=== PATIENT | male | born 1970 | race African-American/Black ===

== ENCOUNTER 2024-12-10 08:58 | Outpatient (AMB) | payer BC, SELFPAY ==
[2024-12-10 09:00] VITALS: BP 110/80; PULSE 68; O2SAT 98; BMI 26.8
--- NOTE | 2024-12-10 09:00 | A.OFFVIS_ITS ---
Vital Signs 3 12/10/24 09:00 Height 6 ft 1 in Weight 203 lb 0.732 oz BMI 26.8 BP 110/80 Blood Pressure Location Lt brachial Position Sitting Pulse 68 Pulse Source Pulse Oximeter Pulse Oximetry (%) 98 Oxygen Delivery Method Room Air Intake Visit Reasons: Hyperlipidemia Intake Note: Patient present today for Hyperlipidemia. 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 Labs from May 2024 showed total cholesterol of 249, triglyceride of 125, HDL 50, LDL cholesterol 174 mg/dL. 2003: was originally told high lipids Cut out red meat, only egg whites , cutting out cheese Mostly plant based diet but past year a little bit more fried foods and eating out Was on crestor 5 mg daily in 2003 , improved numbers but ended up with rhabdomyolysis so discontinued No CA, no CVA 2019: DVT unprovoked , on elequis Family No family history of CVA , CA Mother: type 2 DM Has prediabetes , a1c 05/2024 6.3 % Never smoker Alcohol : 1 drink per month Drug use: none Work : works an technical solutions engineer, mostly on the desk Exercise : 30 mins daily of brisk walking , sometimes 45 to an hour recenlty Does light weights BMI 26.8 kg per m2 Weight 203 lb, endorses that he has lost 15 lb in the past 6 months ASCVD score 5.2%, borderline Physical exam General: sitting comfortably in no acute distress HEENT: normocephalic/atraumatic Neck: supple, symmetrical, no thyromegaly Cardiac: normal heart sounds Pulm: normal breath sounds B/L, no added breath sounds Abd: not distended Extremities: no edema PFSH Medical History (Updated 12/10/24 @ 09:52 by Dorie Tran MD) Dyslipidemia Surgical History (Updated 12/10/24 @ 09:06 by DANIEL Swartz) H/O hand surgery Family History (Updated 12/10/24 @ 09:07 by DANIEL Swartz) Mother Diabetes Father Hypertension Social History (Updated 12/10/24 @ 09:08 by QUINCY Swartz Alcohol intake: current Alcohol intake frequency: holidays/special occasions only Patient Tobacco Use Status: Never used Tobacco Physical Exam Vital Signs: Last Vital Signs Pulse 68 12/10/24 09:00 BP 110/80 12/10/24 09:00 Pulse Ox 98 12/10/24 09:00 Oxygen Delivery Method Room Air 12/10/24 09:00 BMI result Body Mass Index 26.8 Assessment & Plan Assessment & Plan (1) Dyslipidemia: Code(s): E78.5 - Hyperlipidemia, unspecified Category: Medical Plan: 54-year-old male coming in today for initial evaluation of hyperlipidemia. He has mixed hyperlipidemia with a elevated total cholesterol and LDL levels. Also has a history of prediabetes. Previously had an episode of rhabdomyolysis with rosuvastatin 5 mg daily back in 2003. He has been trying to lower his lipid levels with the increased exercise and consumption of healthier fats, however still sometimes for the past few months had had some dietary indiscretion. We spent a lot of time discussing importance of lifestyle modification including avoiding trans in saturated fats. Discussed importance of weight loss of 7-10% to prevent development of diabetes from prediabetes to add to cardiovascular comorbidity. His ASCVD risk score is 5.2% which is borderline. He does not have risk enhancing factors such as premature ASCVD in family, metabolic syndrome, CKD, chronic inflammatory conditions, however definitely with his borderline risk I would advise lowering LDL by a 30-50%. Given history of rhabdomyolysis, he is scared to try a statin, understandably however that was in the setting of dehydration, can consider reach challenging with the lower dose of a different statin such as atorvastatin. I discussed with the patient that we can start him on Zetia but usually that results in 13% LDL reduction by itself, and 26% in addition to his statin. For now he would like to combine Zetia with lifestyle modification. I did tell him that if LDL does not come down within 3 months, he would be a good candidate for PCSK9 inhibitors, however cardiology usually manages this switch primary care physician can refer him to Cardiology. Another option is starting him on bempedoic acid , he would like to wait and see results with Zetia combined with lifestyle modification. He is opting out of seeing a filler wiper, he does have good knowledge of what foods to avoid. I encouraged him to continue with his good amount of exercise and improve the dietary choices. Plan: -start Zetia 10 mg daily -can consider adding bempedoic acid 180 mg daily to his regimen in 3-4 months if lipid panel does not improve -repeat lipid panel in 3 months -if patient would like to start PCSK9 inhibitors, please refer him to cardiology -lifestyle modification is discussed -patient can follow up with us on an as-needed basis, he feels comfortable with following with his primary care physician with the above recommendation Discussed with him side effects of Zetia including muscle aches, rare side effects such as rhabdomyolysis/muscle toxicity, as well as liver toxicity. Liver enzymes were monitored when Zetia as used in addition to statin, since we are just using Zetia, lower risk, no need to monitor LFTs regularly unless he develops any symptoms. Advised him to reach out if he has any muscle aches, nausea, vomiting, changes to his urine color. Note: Patient has a history of thyroid nodules, I do not have any of these records, who used to follow with endocrinology at [facility]. I offered him would he like to establish care with us for his thyroid nodules, however at this time he does not want to pursue it and opts out of that care. I did tell him that since he had a biopsy of 1 of these nodules in the past, these usually require follow up for at least 5 years with an ultrasound every 1-2 years. He understands the risk, however at this time would like to not establish care with us for this. I let him know that if he changes his mind he can call our office to make an appointment or see his prior technical recruiter at [facility]. Patient verbalized understanding. Plan I spent 45 minutes in reviewing the record, seeing the patient and documenting in the medical record. Orders: Orders 2 Lipid Panel Today E78.5 - Hyperlipidemia, unspecified Medications: New 2 ezetimibe (Zetia) 10 mg PO DAILY 90 tabs 3RF Patient Instructions: start zetia 10 mg daily Repeat lipid panel in 3months Continue exercise at least 150 mins a week of cardio plus 2-3 days of 30 mins of strength training Avoid trans and saturdated fats Coding Level of Care Code New Pt Level 4 (75683) Diagnoses Dyslipidemia E78.5 Time Spent (min) 45
--- OUTSIDE RECORDS SUMMARY | 2024-12-10 09:17 | XMS_ITS | Clinical Summary ---
Author Organization [facility] Address [address] [place] [address] Care Team Providers Care Race Engine Builder Name Role Phone Jenny Lees MD Primary Care Provider [phone] Allergies No known active allergies Medications Medication Sig Dispensed Refills Start Date End Date Status apixaban (ELIQUIS) 5 MG TABS tablet Take 5 mg by mouth daily. 0 Active Active Problems No known active problems Family History Medical History Relation Name Comments Benign prostatic hyperplasia Father Hypertension Father Diabetes Mother Relation Name Status Comments Brother 1 Alive Brother 2 Alive Brother 3 Alive Brother 4 Alive Brother 5 Alive Brother 6 Alive Brother 7 Alive Daughter 1 Alive Daughter 2 Alive Father Alive Mother Alive Sister 1 Alive Sister 2 Alive Sister 3 Alive Social History Tobacco Use Types Packs/Day Years Used Date Smoking Tobacco: Never Smokeless Tobacco: Never Alcohol Use Standard Drinks/Week Comments Yes 0 (1 standard drink = 0.6 oz pur e alcohol) Very rare x1 a yr Sex and Gender Information Value Date Recorded Sex Assigned at Not on file Gender Identity Not on file Sexual Orientation Not on file Last Filed Vital Signs Vital Sign Reading Time Taken Comments Blood Pressure 127/82 05/12/2021 11:27 AM EDT Pulse 78 05/12/2021 11:27 AM EDT Temperature 36.2 ??C (97.1 ??F) 05/12/2021 11:27 AM E DT Respiratory Rate - - Oxygen Saturation 100% 05/12/2021 11:27 AM EDT Inhaled Oxygen Concentration - - Weight 93.9 kg (207 lb) 05/12/2021 11:27 AM EDT Height 188 cm (6' 2 ) 05/12/2021 11:27 AM EDT Body Mass Index 26.58 05/12/2021 11:27 AM EDT Plan of Treatment Health Maintenance Due Date Last Done Comments Hepatitis B Vaccines (1 of 3 - 3-dose series) 1970 Hepatitis C Screening 1970 COVID-19 Vaccine (#1) 1970 Depression Screening 1982 Preventative Health Evaluation 1988 DTap / Tdap / Td (1 - Tdap) 1989 Colon Cancer Screening (Colonoscopy) 2015 Shingrix-Zoster Vaccine (1 of 2) 2020 Influenza Vaccine (#1) 2024 Pneumococcal Vaccine Aged Out No long er eligible based on patient's age to complete this topic RSV Ped < 20 months Aged Out No longe r eligible based on patient's age to complete this topic Care Teams Race Engine Builder Relationship Specialty Start Date End Date Jenny Lees MD [address] [place] [address] [address] [place] [address] PCP - General Internal Medicine 10/09/19
--- OUTSIDE RECORDS SUMMARY | 2024-12-10 09:17 | XMS_ITS | Clinical Summary ---
Author Organization [facility] Address [address] [place] [address] Care Team Providers Care Nutritional Assistant Name Role Phone Jenny Lees MD Primary Care Provider [phone] Medical History Medical History Date Comments Pulmonary embolism (CMS/HCC) 09/21/2019 DX: Pulmonary embolism (HCC) Hypercholesteremia DX:Hyperchole steremia;COMMENT:Not on medication Family History Medical History Relation Name Comments [...] drink = 0.6 oz pur e alcohol) Sex and Gender Information Value Date Recorded Sex Assigned at Not on file Gender Identity Not on file Sexual Orientation Not on file Obstetrics History Plan of Treatment Health Maintenance Due Date Last Done Comments DTaP,Tdap,and Td Vaccines (1 - Tdap) 1989 Hepatitis B Vaccines (1 of 3 - 19+ 3-dose series) 1989 Zoster Vaccines (1 of 2) 2020 Cholesterol Screening (Lipid Panel) 10/04/2022 Colorectal Cancer Screening: Colonoscopy 10/04/2022 Depression Screening 10/04/2022 HIV Screening 10/04/2022 Hepatitis C Screening 10/04/2022 Social Influencers of Health Screening 10/04/2022 COVID-19 Vaccine (1 - 2023-2 5 season) 2024 Influenza Vaccine (#1) 2024 HIB Vaccines Aged Out No longer eligi ble based on patient's age to complete this topic HPV Vaccines Aged Out No longer eligi ble based on patient's age to complete this topic Hepatitis A Vaccines Aged Out No long er eligible based on patient's age to complete this topic IPV Vaccines Aged Out No longer eligi ble based on patient's age to complete this topic MMR Vaccines Aged Out No longer eligi ble based on patient's age to complete this topic Meningococcal ACWY Vaccine Aged Out N o longer eligible based on patient's age to complete this topic Pneumococcal Vaccine: Pediat rics (0 to 5 Years) and At-Risk Patients (6 to 64 Years) Aged Out No longer eligible b ased on patient's age to complete this topic RSV Immunization Patients Un melodie 20 months Aged Out No longer eligible b ased on patient's age to complete this topic Varicella Vaccines Aged Out No longer eligible based on patient's age to complete this topic Care Teams Nutritional Assistant Relationship Specialty Start Date End Date Jenny Lees MD [address] [place] [id number] PCP - General Internal Medicine 10/09/19
--- OUTSIDE RECORDS SUMMARY | 2024-12-10 09:17 | XMS_ITS | Data Portability ---
Author Organization EARLINE Cheema [facility], [address] Address [address] [place] [address] Care Team Providers Care Vacuum Truck Driver Name Role Phone PHYSICIAN [facility] Primary Care Provider [phone] Assessment No assessment recorded. Plan of Treatment Reminders Order Date Submit Date Provider Last Modified By Organization Details Last Modified Time Details Appointments None recorded. Lab CBC w/ auto diff 2023 024 [facility], [address] [place] [address], [id number], 4 06:07:34 thyroid panel, serum 2023 024 [facility], [address] [place] [address], [id number], 4 08:07:52 borrelia burgdorferi IgG + IgM + total panel, IA, serum 2023 024 [facility], [address] [place] [address], [id number], 4 14:06:22 CMP, serum or plasma 2023 024 [facility], [address] [place] [address], [id number], 4 08:07:52 Referral None recorded. Procedures None recorded. Surgeries None recorded. Imaging None recorded. Medication Orders None recorded. Patient TargetsNo targets recorded. Patient Instructions Encounter Date Encounter Id Patient Instructions Last Modified By Organization Details Last Modified Time 05/24/2024 [id number] fatigue: care instructions Not available 05/24/2024 19:24:16 specimen collection & handling* RYLAN Not available 05/24/2024 19:25:57 06/28/2024 [id number] diarrhea: care instructions Not available 06/28/2024 12:22:34 Take 1 OTC Immodium after each loose bowel movement. No more than 4 tablets a day. [email or web address] Not available 06/28/2024 12:14:23 Reason for Referral None Reported. Results Created Date Observation Date Name Description Value Unit Range Abnormal Flag Note LastModifiedBy Organization Detail LastModifiedTime 05/24/20 24 05/25/2024 CBC WITH DIFFE RENTI AL/PL ATELE T WBC 3.7 x10e3 /uL 3.4-10 .8 normal Not Available [facility] ([facility]) [address] [place], [address], 05/25/2024 06:07:34 05/24/20 24 05/25/2024 CBC WITH DIFFE RENTI AL/PL ATELE T RBC 4.63 x10e6 /uL 4.14-5 .80 normal Not Available [facility] ([facility]) [address] [place], [address], 05/25/2024 06:07:34 05/24/20 24 05/25/2024 CBC WITH DIFFE RENTI AL/PL ATELE T hemoglobin 13.8 g/dL 13.0-1 7.7 normal Not Available [facility] ([facility]) [address] [place], [address], 05/25/2024 06:07:34 05/24/20 24 05/25/2024 CBC WITH DIFFE RENTI AL/PL ATELE T hematocrit 42.6 % 37.5-5 1.0 normal Not Available [facility] ([facility]) [address] [place], [address], 05/25/2024 06:07:34 05/24/20 24 05/25/2024 CBC WITH DIFFE RENTI AL/PL ATELE T MCV 92 fL 79-97 normal Not Available [facility] ([facility]) [address] [facility], [place], [address], 05/25/2024 06:07:34 05/24/20 24 05/25/2024 CBC WITH DIFFE RENTI AL/PL ATELE T MCH 29.8 pg 26.6-3 3.0 normal Not Available [facility] ([facility]) [address] [facility], [place], [address], 05/25/2024 06:07:34 05/24/20 24 05/25/2024 CBC WITH DIFFE RENTI AL/PL ATELE T MCHC 32.4 g/dL 31.5-3 5.7 normal Not Available [facility] ([facility]) [address] [facility], [place], [address], 05/25/2024 06:07:34 05/24/20 24 05/25/2024 CBC WITH DIFFE RENTI AL/PL ATELE T RDW 13.1 % 11.6-1 5.4 Not Available [facility] ([facility]) [address] [place], [address], 05/25/2024 06:07:34 05/24/20 24 05/25/2024 CBC WITH DIFFE RENTI AL/PL ATELE T platelets 218 x10e3 /uL 150-45 0 normal Not Available [facility] ([facility]) [address] [facility], [place], [address], 05/25/2024 06:07:34 05/24/20 24 05/25/2024 CBC WITH DIFFE RENTI AL/PL ATELE T neutrophils 54 % not estab. normal Not Available [facility] ([facility]) [address] [facility], [place], [address], 05/25/2024 06:07:34 05/24/20 24 05/25/2024 CBC WITH DIFFE RENTI AL/PL ATELE T lymphs 34 % not estab. normal Not Available [facility] ([facility]) [address] [facility], [place], [address], 05/25/2024 06:07:34 05/24/20 24 05/25/2024 CBC WITH DIFFE RENTI AL/PL ATELE T monocytes 9 % not estab. normal Not Available [facility] ([facility]) [address] [facility], [place], [address], 05/25/2024 06:07:34 05/24/20 24 05/25/2024 CBC WITH DIFFE RENTI AL/PL ATELE T eos 2 % not estab. normal Not Available [facility] ([facility]) [address] [facility], [place], [address], 05/25/2024 06:07:34 05/24/20 24 05/25/2024 CBC WITH DIFFE RENTI AL/PL ATELE T basos 0 % not estab. normal Not Available [facility] ([facility]) [address] [facility], [place], [address], 05/25/2024 06:07:34 05/24/20 24 05/25/2024 CBC WITH DIFFE RENTI AL/PL ATELE T immature cells BOTTOM STOP ATTACHER Not Available [facility] ([facility]) [address] [place], [address], 05/25/2024 06:07:34 05/24/20 24 05/25/2024 CBC WITH DIFFE RENTI AL/PL ATELE T neutrophils (absolute) 2.0 x10e3 /uL 1.4-7. 0 normal Not Available [facility] ([facility]) [address] [place], [address], 05/25/2024 06:07:34 05/24/20 24 05/25/2024 CBC WITH DIFFE RENTI AL/PL ATELE T lymphs (absolute) 1.3 x10e3 /uL 0.7-3. 1 normal Not Available [facility] ([facility]) [address] [facility], [place], [address], 05/25/2024 06:07:34 05/24/20 24 05/25/2024 CBC WITH DIFFE RENTI AL/PL ATELE T monocytes(ab solute) 0.3 x10e3 /uL 0.1-0. 9 normal Not Available [facility] ([facility]) [address] [facility], [place], [address], 05/25/2024 06:07:34 05/24/20 24 05/25/2024 CBC WITH DIFFE RENTI AL/PL ATELE T eos (absolute) 0.1 x10e3 /uL 0.0-0. 4 normal Not Available [facility] ([facility]) [address] [facility], [place], [address], 05/25/2024 06:07:34 05/24/20 24 05/25/2024 CBC WITH DIFFE RENTI AL/PL ATELE T baso (absolute) 0.0 x10e3 /uL 0.0-0. 2 normal Not Available [facility] ([facility]) [address] [facility], [place], [address], 05/25/2024 06:07:34 05/24/20 24 05/25/2024 CBC WITH DIFFE RENTI AL/PL ATELE T immature granulocytes 1 % not estab. Not Available [facility] ([facility]) [address] [facility], [place], [address], 05/25/2024 06:07:34 05/24/20 24 05/25/2024 CBC WITH DIFFE RENTI AL/PL ATELE T immature grans (abs) 0.0 x10e3 /uL 0.0-0. 1 Not Available [facility] ([facility]) [address] [facility], [place], [address], 05/25/2024 06:07:34 05/24/20 24 05/25/2024 CBC WITH DIFFE RENTI AL/PL ATELE T NRBC BOTTOM STOP ATTACHER Not Available [facility] ([facility]) [address] [facility], [place], [address], 05/25/2024 06:07:34 05/24/20 24 05/25/2024 CBC WITH DIFFE RENTI AL/PL ATELE T hematology comments: BOTTOM STOP ATTACHER Not Available [facility] ([facility]) [address] [facility], [place], [address], 05/25/2024 06:07:34 05/24/20 24 05/25/2024 COMP. METAB OLIC PANEL (14) glucose 110 mg/dL 70-99 above high normal Not Available [facility] ([facility]) [address] [facility], [place], [address], 05/25/2024 08:07:51 05/24/20 24 05/25/2024 COMP. METAB OLIC PANEL (14) BUN 10 mg/dL 6-24 normal Not Available [facility] ([facility]) [address] [facility], [place], [address], 05/25/2024 08:07:51 05/24/20 24 05/25/2024 COMP. METAB OLIC PANEL (14) creatinine 1.10 mg/dL 0.76-1 .27 normal Not Available [facility] ([facility]) [address] [facility], [place], [address], 05/25/2024 08:07:51 05/24/20 24 05/25/2024 COMP. METAB OLIC PANEL (14) eGFR 80 mL/mi n/1.7 3 >59 normal Not Available [facility] ([facility]) [address] [facility] [place], [address], 05/25/2024 08:07:51 05/24/20 24 05/25/2024 COMP. METAB OLIC PANEL (14) BUN/creatini ne ratio 9 9-20 normal Not Available [facility] ([facility]) [address] [place], [address], 05/25/2024 08:07:51 05/24/20 24 05/25/2024 COMP. METAB OLIC PANEL (14) sodium 142 mmol/ L 134-14 4 normal Not Available [facility] ([facility]) [address] [facility] [place], [address], 05/25/2024 08:07:51 05/24/20 24 05/25/2024 COMP. METAB OLIC PANEL (14) potassium 4.7 mmol/ L 3.5-5. 2 normal Not Available [facility] ([facility]) [address] [facility] [place], [address], 05/25/2024 08:07:51 05/24/20 24 05/25/2024 COMP. METAB OLIC PANEL (14) chloride 105 mmol/ L 96-106 normal Not Available [facility] ([facility]) [address] [facility] [place], [address], 05/25/2024 08:07:51 05/24/20 24 05/25/2024 COMP. METAB OLIC PANEL (14) carbon dioxide, total 23 mmol/ L 20-29 normal Not Available [facility] ([facility]) [address] [facility] [place], [address], 05/25/2024 08:07:51 05/24/20 24 05/25/2024 COMP. METAB OLIC PANEL (14) calcium 9.5 mg/dL 8.7-10 .2 normal Not Available [facility] ([facility]) [address] [facility] [place], [address], 05/25/2024 08:07:51 05/24/20 24 05/25/2024 COMP. METAB OLIC PANEL (14) protein, total 6.8 g/dL 6.0-8. 5 normal Not Available [facility] ([facility]) [address] [facility] [place], [address], 05/25/2024 08:07:51 05/24/20 24 05/25/2024 COMP. METAB OLIC PANEL (14) albumin 4.3 g/dL 3.8-4. 9 normal Not Available [facility] ([facility]) [address] [facility], [place], [address], 05/25/2024 08:07:51 05/24/20 24 05/25/2024 COMP. METAB OLIC PANEL (14) globulin, total 2.5 g/dL 1.5-4. 5 Not Available [facility] ([facility]) [address] [facility], [place], [address], 05/25/2024 08:07:51 05/24/20 24 05/25/2024 COMP. METAB OLIC PANEL (14) bilirubin, total 0.4 mg/dL 0.0-1. 2 normal Not Available [facility] ([facility]) [address] [facility], [place], [address], 05/25/2024 08:07:51 05/24/20 24 05/25/2024 COMP. METAB OLIC PANEL (14) alkaline phosphatase 59 IU/L 44-121 normal Not Available [facility] ([facility]) [address] [facility], [place], [address], 05/25/2024 08:07:51 05/24/20 24 05/25/2024 COMP. METAB OLIC PANEL (14) AST (SGOT) 26 IU/L 0-40 normal Not Available [facility] ([facility]) [address] [facility], [place], [address], 05/25/2024 08:07:51 05/24/20 24 05/25/2024 COMP. METAB OLIC PANEL (14) ALT (SGPT) 20 IU/L 0-44 normal Not Available [facility] ([facility]) [address] [facility], [place], [address], 05/25/2024 08:07:51 05/24/20 24 05/25/2024 THYRO ID PANEL WITH TSH TSH 0.773 uIU/m L 0.450- 4.500 normal Not Available [facility] ([facility]) [address] [place], [address], 05/25/2024 08:07:52 05/24/20 24 05/25/2024 THYRO ID PANEL WITH TSH thyroxine (T4) 6.0 ug/dL 4.5-12 .0 normal Not Available [facility] ([facility]) [address] [place], [address], 05/25/2024 08:07:52 05/24/20 24 05/25/2024 THYRO ID PANEL WITH TSH T3 uptake 28 % 24-39 normal Not Available [facility] ([facility]) [address] [place], [address], 05/25/2024 08:07:52 05/24/20 24 05/25/2024 THYRO ID PANEL WITH TSH free thyroxine index 1.7 1.2-4. 9 normal Not Available [facility] ([facility]) [address] [place], [address], 05/25/2024 08:07:52 05/24/20 24 05/25/2024 LYME DISEA SE SEROL OGY W/REF VANGIE lyme total antibody nilda NEGATI VE negati ve Lyme antib odies not detec suresh. Refle x testi ng is not indic ated. No labor atory evide nce of infec tion with B. burgd orfer i (Lyme disea se). Negat arti resul ts may occur in patie nts recen tly infec suresh (less than or equal to 14 days) with B. burgd orfer i. If recen t infec tion is suspe cted, repea t testi ng on a new sampl e colle cted in 7 to 14 days is recom lidya d. Not Available [facility] ([facility]) [address] [place], [address], 05/25/2024 14:06:22 Result Notes None recorded. Problems Name Problem SNOMED Code Status Onset Date Resolution Date Notes Provider Name and Address Organization Details Recorded Time Pulmonary embolism [id number] Active Ryland guan PA - [facility] 4 19:08:44 Problem Notes None recorded. Procedures Surgical History Date Name Laterality Status Provider Name and Address Organization Details Recorded Time 05/24/20 24 Venipuncture Template completed Ryland Burgess PA - [facility] 05/24/2024 19:44:16 11/06/19 05 procedure on hand completed Ryland Burgess PA - [facility] 05/24/2024 19:10:12 Imaging Results None recorded. Procedure Notes None recorded. Medical Equipment None Reported. Allergies No known drug allergies Medications Name Sig Start Date Stop Date Status Note LastModified by Organization Details LastModified Time doxycycline hyclate 100 mg capsule TAKE 1 CAPSULE BY MOUTH TWICE A DAY WITH MEALS 05/24 completed Not Available Not Available Not Available meclizine 25 mg tablet TAKE 1 TABLET BY MOUTH EVERY 8 HOURS 05/24 completed Not Available Not Available Not Available baclofen 10 mg tablet TAKE 1 TABLET BY MOUTH EVERY DAY AT BEDTIME NEEDED 05/24 completed Not Available Not Available Not Available Eliquis 5 mg tablet TAKE 1 TABLET BY MOUTH TWICE A DAY active Not Available Not Available No t Available Vitals Date Recorded Body height Body mass index (BMI) Body weight Body temperature Oxygen saturation Oxygen saturation in Arterial blood by Pulse oximetry Heart rate Respiratory rate Systolic blood pressure Diastolic blood pressure Provider Name and Address Organization Details Last Updated DateTime 4 187.96 cm 27 kg/m2 78665.4 g 98.8 [degF] 97 % 97 % 79 /min 12 /min 131 mm[Hg] 81 mm[Hg] Ryland Burgess PA - [facility] 4 19:14:21 Date Recorded Body height Body mass index (BMI) Body weight Oxygen saturation Oxygen saturation in Arterial blood by Pulse oximetry Heart rate Respiratory rate Body temperature Systolic blood pressure Diastolic blood pressure Provider Name and Address Organization Details Last Updated DateTime 4 185.42 cm 26.4 kg/m2 68606.4 7 g 99 % 99 % 70 /min 18 /min 97.5 [degF] 100 mm[Hg] 65 mm[Hg] Dea Macedo PA - [facility] 12:17:30 Social History Question Answer Notes LastModified by Organizat ion Details LastModified Time Tobacco Smoking Status Never Smoker EARLINE Hay [facility] 05/24/2024 19:09:52 What Is Your Level Of Alcohol Consumption? Occasional Information not available 05/24/2024 Have You Had A Flu Shot This Season? No Information not available 05/24/2024 Do You Use Any Illicit Or Recreational Drugs? No Information not available 05/24/2024 Have You Recently Traveled Abroad? No Information not available 05/24/2024 Do You Or Have You Ever Used Any Other Forms Of Tobacco Or Nicotine? No Information not available 05/24/2024 Sex: Unknown Functional Status None recorded. Mental Status None recorded. Family History Relationship Description Onset Age of this Age Resolved Age Notes LastModified by Organization Details LastModified Time Sister Malignant tumor of breast Not available 2023 19:09:02 Mother Diabetes mellitus Not available 2023 19:09:20 Father Benign prostatic hyperplasia Not available 05/06 19:09:27 Father Hypertensive disorder Not available 2023 19:09:34 Medical History No medical history recorded. Past Encounters Encounter ID Performer Location Encounter Start Date Encounter Closed Date Diagnosis/Indication Diagnosis SNOMED-CT Code Diagnosis ICD10 Code Diagnosis Note [id number] [address] [facility] [address] [place] [address] 05/22/2021 19:44:15 05/22/2021 20:12:54 [id number] [facility]LINE [facility] [address] [facility] [address] [place] [address] 05/24/2024 18:59:24 05/24/2024 19:39:17 Fatigue 34544884 R53.83 Get regular exercise. But don't overdo it. Go back and forth between rest and exercise.G et plenty of rest.Eat a healthy diet. Do not skip meals, especially breakfast. Reduce your use of caffeine, tobacco, and alcohol. Caffeine is most often found in coffee, tea, cola drinks, and chocolate. Limit medicines that can cause fatigue. This includes tranquiliz ers and cold and allergy medicines. Watch closely for changes in your health, and be sure to contact your doctor if:You have new symptoms such as fever or a rash.Your fatigue gets worse.You have been feeling down, depressed, or hopeless. Or you may have lost interest in things that you usually enjoy.You are not getting better as expected. [id number] EARLINE Alfred [address] [facility] [address] [facility] [place] [address] 06/28/2024 11:53:52 06/28/2024 12:23:14 Acute diarrhea 851033707 R19.7 Diarrhea is defined as at least 3 watery or loose stools per day. Diarrhea is usually self-limit ed, viral and stops on its own in 3-10 days.?The greatest risk of diarrhea is dehydratio n. Consume plenty of liquids and foods that are bland and have salt (as long as you do not have high blood-pres sure or CHF). If you tolerate them, consuming healthy, higher fat foods which slow-down digestion, such as hummus, avocado, whole eggs, nuts, olive oil and ji seeds, may improve your symptoms. Avoid DAIRY because this can make it worse because some viruses cause a temporary lactose intoleranc e. Take probiotics which may help replenish bacteria lost through diarrhea.?If you are not improving, were recently hospitaliz ed and may have C.Diff and/or traveled out of the country, follow-up with your primary care physician because he/she may want to do additional tests that we do not usually order at [facility]. No tests are normally needed in the first 2 weeks of diarrhea. Health Concerns Section Related Observation LastModified by Organization Detai ls LastModified Time None Recorded Concern Status LastModified by Organization Details LastModified Time None Recorded Advance Directives Directive None Recorded Payers Encounter Date Sequence Insurance Name Policy Number Policy Matos Covered Member ID Matos Member ID Guarantor Name 05/22/2021 1 [employer]: MICHELLE GRANGER [id number] Viviane Reese [id number] Reese 05/24/2024 1 [employer]: MICHELLE [employer] [id number] Viviane Reese [id number] Addy Reese 06/28/2024 1 [employer]: MICHELLE [employer] [id number] Viviane Reese [id number] Addy Reese Notes Date Note Type Note Provider Name and Address Organization Details Recorded Time 05/24/2024 text/html 54 y/o male with h/o thyroid nodules, and PE 5 yrs ago here with 6-8 weeks fatigue, worsening recently. He had COVID in 2021, and has had some lingering symptoms that 2 months ago were treated as a sinus infection which helped some.He has had bx done of his thyroid nodules, no malignancy, following up later this year. Doesn't know last time he had his TSH checked[place], [address], [employer] 05/24/2024 19:47:59 06/28/2024 text/html 54 y/o male here with 5 days of diarrhea after a trip to [facility]. No nausea, vomiting, some mild abd discomfort.Had been going 5-6 times a day, now down to 2-3. Some firm stools yesterday [place], [address], [email or web address] 06/28/2024 12:26:01
== END 2024-12-10 10:03 | disposition home or self-care (01) ==
PROVIDERS: PCP Internal Medicine; Visit Provider Student in an Organized Health Care Education/Training Program
DX: E78.5 Hyperlipidemia, unspecified (principal)
CPT/HCPCS: 99204